=== PATIENT | male | born 1950 | race Hispanic/Latino ===

== ENCOUNTER 2024-03-21 09:48 | Emergency (ER) | payer SELFPAY ==
[~2024-03-21] VITALS: Ht 165.1 cm; Wt 63.5 kg
[2024-03-21] MEDS: HYDROcod/acetaMINOPHEN 7.5/325 MG 15 ML UDCUP PO PRN (10:44)
[2024-03-21] MEDS: teTANUS/diphthERIA TOXOID [ADULT] 0.5 ML VIAL IM ONE (10:49)
[2024-03-21] MEDS: LIDOCAINE 1%-EPI 1:100,000 20 ML VIAL IJ SCH (12:15)
[2024-03-21] MEDS: cefTRIAXone 1G VIAL IM ONE (12:15)
[2024-03-21] MEDS: BACITRACIN 1 EACH PACKET TP ONE (12:15)
[2024-03-21] MEDS ORDERED: AMOX1TAB16 PO (12:33)
[2024-03-21 12:38] VITALS: BP 135/72; PULSE 60; RESP 20; TEMP 98.4; O2SAT 96
== END 2024-03-21 12:40 | disposition home or self-care (01) ==
LOC: EDH 09:48
DX: S61.452A Open bite of left hand, initial encounter (principal); Z98.890 Other specified postprocedural states; W54.0XXA Bitten by dog, initial encounter; Y93.89 Activity, other specified; Y92.89 Other specified places as the place of occurrence of the external cause; Y99.8 Other external cause status
CPT/HCPCS: 99284; 90714; 73130; 90471; 12004; 96372; J3490; J0696